=== PATIENT | female | born 1975 | race Caucasian/White ===

== ENCOUNTER 2018-09-13 11:10 | Emergency (ER) | payer MEDICAID ==
[~2018-09-13] VITALS: Ht 157.5 cm; Wt 105.0 kg
[2018-09-13 11:24] VITALS: BP 155/90
[2018-09-13] MEDS ORDERED: ACETAMINOPHEN 325MG TABLET PO ONE (13:45)
[2018-09-13] MEDS ORDERED: LIDOCAINE HCL/PF 1% 10 MG/ML 5ML VIAL IJ ONE (13:45)
[2018-09-13] MEDS ORDERED: BACITRACIN ZINC OINT UDPKT TOP ONE (13:45)
== END 2018-09-13 15:11 | disposition home or self-care (01) ==
LOC: ER 14:19
DX: L60.0 Ingrowing nail (principal); H92.09 Otalgia, unspecified ear; J45.909 Unspecified asthma, uncomplicated; Z76.0 Encounter for issue of repeat prescription
CPT/HCPCS: 11730; 93005; 99284; J3490